=== PATIENT | male | born 1985 | race Caucasian/White ===

== ENCOUNTER 2022-12-20 21:54 | Emergency (ER) | payer OTHER, SELFPAY ==
--- NOTE | ~2022-12-20 | CT_ITS ---
EXAMINATION: CT abdomen pelvis w con DATE: 12/21/2022 02:04 INDICATION: Right flank pain TECHNIQUE: Computed tomography (CT) of the abdomen and pelvis was performed with 100 CC Omnipaque 350 intravenous contrast. Automated exposure control and iterative reconstruction technique were employe d. Exam dose: 799.99 mGy-cm total exam DLP. COMPARISON: None. FINDINGS: Mild dependent atelectasis in the lingula and both lower lobes. Normal heart size. No pericardial or pleural effusion. Status post cholecystectomy, which likely accounts for mild prominence of the intrahepatic bile ducts . The common bile duct appears of normal caliber. No hepatic or pancreatic space-occupying mass lesion. No pancreatic calcification or pancreatic duct dilatation. Normal splenic size. No renal mass lesion or urinary tract calculus or hydroureteronephrosis. Mild diffuse thickening of t he urinary bladder wall which may be secondary to moderate prostate enlargement. No apparent intralum inal filling defect the urinary bladder is evident, although there is no contrast material within the urinary bladder. Normal caliber of the abdominal aorta. No intraperitoneal or retroperitoneal or pelvic mass lesion or adenopathy or ascites. Normal appendix. There is a short segment of apparent circumferential soft tissue thickening of the wall of the proxim al descending colon with narrowed lumen. Colon workup by barium enema or colonoscopy is recommended t o exclude a constricting apple core lesion due to adenocarcinoma of the proximal descending colon. Th ere is probably gaseous distention and a prominent of fecal material proximal to this site. IMPRESSION: Cannot exclude circumferential soft tissue mass of the proximal descending colon; colono scopy or barium enema are recommended to exclude adenocarcinoma of the colon Normal appendix Prostate enlargement Status post cholecystectomy Dr. Palma telephoned the finding of possible soft tissue mass of proximal descending colon and recomme ndation for barium enema or colonoscopy to emergency room physician Dr. Yoo on 12/21/2022 at 1223 [address]. Reviewed, dictated and finalized at [facility]. Reviewed, dictated and finalized at [facility]. IMPRESSION: Cannot exclude circumferential soft tissue mass of the proximal de scending colon; colonoscopy or barium enema are recommended to exclude adenocar cinoma of the colon Normal appendix Prostate enlargement Status post cholecystectomy Dr. Palma telephoned the finding of possible soft tissue mass of proximal descen ding colon and recommendation for barium enema or colonoscopy to emergency room physician Dr. Yoo on 12/21/2022 at 1223 hours.
[2022-12-20 22:11] VITALS: BP 122/90; PULSE 88; RESP 18; TEMP 36.3; O2SAT 98
[2022-12-20 22:48] LABS: Basophils Absolute Auto 0.1 K/mm3 (0.0-0.1); Basophils Percent Auto 0.6 % (0.2-1.2); Eosinophils Absolute Auto 0.2 K/mm3 (0-0.3); Eosinophils Percent Auto 2.5 % (0-4.4); Hemoglobin 14.8 g/dL (14.0-18.0); Immature Granulocyte Absolute 0.02 K/mm3 (0.00-0.031); Immature Granulocyte Percent A 0.2 % (0-0.5); Lymphocytes Absolute Auto 2.15 K/mm3 (0.9-3.2); Lymphocytes Percent Auto 22.1 % (18.3-44.2); Mean Corpuscular HGB Conc 33.6 g/dl (32-36); Mean Corpuscular Hemoglobin 29.2 pg (26-34); Mean Platelet Volume 9.6 fl (7.4-10.4); Monocytes Absolute Auto 0.7 K/mm3 (0.1-0.6); Neutrophils Absolute Auto 6.6 K/mm3 (1.3-6.7); Neutrophils Percent Auto 67.6 % (45.5-73.1); Platelet Count Result 241 k/mm3 (150-375); Red Blood Count 5.06 M/mm3 (4.6-6.20); Red Cell Distribution Width 13.3 % (11.5-14.5); White Blood Count 9.7 K/mm3 (4.5-10.0)
[2022-12-20 22:54] LABS: Appearance Urine Clear (Clear); Bilirubin Urine Negative (Negative); Blood Urine Negative (Negative); Color Urine Dark Yellow (Yellow); Glucose Urine UA Negative (Negative); Ketones Urine Trace mg/dL (Negative); Leukocyte Esterase Ur Negative LEU/UL (Negative); Nitrate Urine Negative (Negative); Protein Urine Negative (Negative); Specific Grav Ur 1.024 (1.001-1.035); pH Urine 5.5 (5.0-9.0)
[2022-12-20 22:57] LABS: Add Urine Microscopic? NO
[2022-12-20 23:01] LABS: Alanine Aminotransferase 25 U/L (6-50); Albumin Level 4.5 g/dL (3.5-5.1); Alkaline Phosphatase 60 U/L (38-126); Anion Gap 7 mmol/L (8-16); Aspartate Amino Transferase 23 U/L (17-59); Bilirubin,Total 0.6 mg/dL (0.2-1.3); Blood Urea Nitrogen 16 mg/dL (9-20); Calcium 9.1 mg/dL (8.4-10.2); Carbon Dioxide 31 mmol/L (22-30); Chloride 101 mmol/L (98-107); Estimated CRCL calculation 82 ml/min; Estimated Glomerular Filt Rate > 60; Glucose 96 mg/dL (65-110); Lipase 77 U/L (23-300); Potassium 4.6 mmol/L (3.4-5.0); Sodium 139 mmol/L (137-145)
--- NOTE | 2022-12-21 01:17 | ED.ABDPAIN ---
HPI - Abdominal Pain General Chief Complaint: Abdominal Pain Stated Complaint: gas pains; abd pains Time Seen by Provider: 12/21/22 00:51 History of Present Illness HPI narrative: 37-year-old male presented to the emergency department for evaluation of diffuse abdominal pain. Patient states he has had right-sided pain that radiates to the left flank. Patient states he has had increased gas with this. Patient reports he has had a cholecystectomy. Patient denies frequent alcohol use, denies any prior history of pancreatitis. Denies any prior history of kidney stones. Related Data Allergies Allergy/AdvReac Type Severity Reaction Status Date / Time No Known Allergies Allergy Verified 12/20/22 22:15 Review of Systems Review of Systems: All systems reviewed & are unremarkable except as noted in HPI and below Exam Narrative: APPEARANCE: Well appearing, no pain, no distress, well-nourished. HEAD: normocephalic, atraumatic. EYES: PERRLA/EOMI, conjunctivae clear. NOSE: Normal no drainage NECK: Supple. No adenopathy, no masses. RESPIRATORY: Airway patent, respirations nonlabored. Clear to auscultation bilaterally, no rales, rhonchi, wheezing. CARDIOVASCULAR: Regular rate and rhythm without murmurs rubs or gallops. ABDOMINAL: Some right CVA tenderness, no abdominal tenderness to palpation MUSCULOSKELETAL: Moves all extremities. Strength/ROM intact, No edema, No calf tenderness. NEURO: Alert. Cranial nerves II through XII intact. SKIN: Warm, dry. Normal Color Course Course Emergency Course: 37-year-old male presented the ED for evaluation of diffuse abdominal pain. Patient is afebrile with no leukocytosis and has a stable hemoglobin of 14.8. Patient has a normal creatinine, normal AST ALT alk phos and lipase. UA shows no evidence of urinary tract infection. CT scan showed normal appendix with no acute pelvic findings. Patient was updated on the results of the work-up. Patient was encouraged of close follow-up with his primary care physician. Patient was also advised to follow a clear liquid diet for the next few days. Vital Signs Vital signs: Vital Signs Temperature 97.4 F L 12/20/22 22:11 Pulse Rate 88 12/20/22 22:11 Respiratory Rate 18 12/20/22 22:11 Blood Pressure 122/90 12/20/22 22:11 Pulse Oximetry 98 12/20/22 22:11 Oxygen Delivery Room Air 12/20/22 22:11 Temperature 97.4 F L 12/20/22 22:11 Pulse Rate 88 12/20/22 22:11 Respiratory Rate 18 12/20/22 22:11 Blood Pressure 122/90 12/20/22 22:11 Pulse Oximetry 98 12/20/22 22:11 Oxygen Delivery Room Air 12/20/22 22:11 MDM - Abdominal Pain Differential Diagnosis Differential diagnosis: Likely abdominal pain, acute appendicitis, calculus of kidney, constipation, diverticulitis, endometriosis, gastroenteritis, pancreatitis and small bowel obstruction Lab Data Attestation: I reviewed the patient's lab results. 12/20/22 22:43 12/20/22 22:43 Labs: Lab Results 12/20/22 12/20/22 Range/Units 22:43 22:49 WBC 9.7 (4.5-10.0) K/mm3 RBC 5.06 (4.6-6.20) M/mm3 Hgb 14.8 (14.0-18.0) g/dL Hct 44.0 (42.0-52.0) % MCV 87.0 (80-100) fl MCH 29.2 (26-34) pg MCHC 33.6 (32-36) g/dl RDW 13.3 (11.5-14.5) % Plt Count 241 (150-375) k/mm3 MPV 9.6 (7.4-10.4) fl Immature Gran % (Auto) 0.2 (0-0.5) % Neut % (Auto) 67.6 (45.5-73.1) % Lymph % (Auto) 22.1 (18.3-44.2) % [place] % (Auto) 7.0 (2.6-8.5) % Eos % (Auto) 2.5 (0-4.4) % Baso % (Auto) 0.6 (0.2-1.2) % Lymph # (Auto) 2.15 (0.9-3.2) K/mm3 [place] # (Auto) 0.7 H (0.1-0.6) K/mm3 Eos # (Auto) 0.2 (0-0.3) K/mm3 Baso # (Auto) 0.1 (0.0-0.1) K/mm3 Abs Immat Gran (auto) 0.02 (0.00-0.031) K/mm3 Absolute Neuts (auto) 6.6 (1.3-6.7) K/mm3 Absolute Nucleated RBC 0.0 (0.0-0.012) K/mm3 Nucleated RBC % 0.0 (0.0-0.2) % Sodium 139 (137-145) mmol/L Potassium 4.6 (3.4-5.0) mmol/L Chlo
[2022-12-21] MEDS: SODIUM CHLORIDE 0.9% IV 1,000 ML 999 ML IV CONT (01:30)
[2022-12-21] MEDS: HYDROmorphone HCL INJ (*CRX) 1 MG/ML SYR 0.5 MG IV PUSH (01:30)
== END 2022-12-21 04:45 | disposition home or self-care (01) ==
PROVIDERS: Emergency Provider Emergency Medicine
DX: R10.9 Unspecified abdominal pain (principal); M54.9 Dorsalgia, unspecified; R93.3 Abnormal findings on diagnostic imaging of other parts of digestive tract; N40.0 Benign prostatic hyperplasia without lower urinary tract symptoms; Z90.49 Acquired absence of other specified parts of digestive tract
CPT/HCPCS: 36415; 74177; 80053; 81003; 83690; 85025; 96361; 96374; 99284; J1170; J7030; Q9967